=== PATIENT | female | born 1935 | race Caucasian/White ===

== ENCOUNTER 2016-08-13 08:11 | Inpatient (IN) | payer MEDICARE, OTHER ==
[~2016-08-13] VITALS: Ht 154.9 cm; Wt 74.6 kg
[2016-08-13] MEDS ORDERED: CO Q100C9 PO (08:41)
[2016-08-13] MEDS ORDERED: VITA2000 PO (08:41)
[2016-08-13] MEDS ORDERED: ASTA1CAP2 PO (08:41)
[2016-08-13] MEDS ORDERED: MULT1TAB84 PO (08:41)
[2016-08-13] MEDS ORDERED: LUTE20TA PO (08:41)
[2016-08-13] MEDS ORDERED: LEVO75TA3 PO (08:41)
[2016-08-13] MEDS ORDERED: LISI10TA3 PO (08:41)
[2016-08-13] MEDS ORDERED: VITATAB11 PO (08:41)
[2016-08-13] MEDS ORDERED: ASPI1TAB69 PO (08:42)
--- NOTE | 2016-08-23 19:29 | MH ---
cc: CARLOS DEVLIN DATE OF ADMISSION 08/29/2016 ADMISSION DIAGNOSIS Osteoarthritis of the right hip, pain right hip. HISTORY OF PRESENT ILLNESS The patient is a 81-year-old white female who presented to the office in July of this year complaining of right hip pain of at least three years duration. She had noted the gradual onset of her symptoms unrelated to injury or unusual activity. She had conformed to conservative management while noting lingering symptoms that tended to wax and wane in nature. She had completed previous orthopedic evaluation in the [facility] with a Dr. Javier. The patient reported that she was diagnosed as having an osteoarthritic condition of her right hip for which she was encouraged to consider operative intervention. She did complete a course of physical therapy that she found to be of limited benefit and she later returned to the [facility] where she had resided during the spring and summer months where she continued to conform to an exercise program. During the past year, her symptoms became somewhat more pronounced for which she underwent additional evaluation and treatment including chiropractic intervention. She was again encouraged to consider operative intervention, but was unable to plan accordingly being a caregiver for her ailing . She was taking Advil and aspirin on an occasional basis for pain management and tried to exercise while riding a three-wheeled bicycle as well as exercising at the gym. She presented to the undersigned in July describing ongoing pain involving both her lower back and her right hip with limited radiation into the anterior aspect of her right thigh. There was no associated numbness or tingling. No bowel or bladder incontinence. The patient reported at that time she had undergone previous bilateral total knee arthroplasty as completed in the [facility]. She described an uneventful recovery associated with that treatment. At the time of her initial office evaluation, her x-ray studies revealed significant osteoarthritis of the hips being more pronounced on the right side with near [id number] apposition. 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 Findings and treatment options were reviewed at that time. The pros and cons of continuing with conservative management versus operative intervention involving total hip arthroplasty were outlined in detail. Emphasis was made regarding the fact that the decision to proceed with surgery would be left entirely to the patient's discretion. At that time, the patient felt that her symptoms had progressed to a point where she was ready to proceed with operative intervention as discussed. Upon completion of medical clearance of her primary care physician, she contacted the office for scheduling purposes and is currently being admitted in order that total hip replacement be accomplished. PAST MEDICAL HISTORY, HOSPITALIZATIONS AND SURGERIES 1. Bilateral total knee arthroplasty as described 2. Left mastectomy for history of cancer followed by both chemo and radiation therapy 3. Partial thyroidectomy, 4. Bilateral cataract excision with intraocular lens implants, 5. Tonsillectomy, 6. D&C 7. Colonoscopy 8. Medical management for a TIA with no residual being noted. The patient's medical illnesses include 1. Hypertension 2. Hypothyroidism. MEDICATIONS Current include 1. Lisinopril 10 mg daily. 2. Levofloxacin 0.75 mg daily. 3. Aspirin 81 mg daily 4. Multivitamin tablet daily. 5. Vitamin D. 6. Vitamin B complex 7. Lutein 8. 9. ALLERGIES AMOXICILLIN - CAUSED HIVES TYPE REACTION. PERCOCET - CAUSED ITCHING SHRIMP - ALSO CAUSES HIVES TYPE REACTION. REVIEW OF SYSTEMS She does wear glasses. Denies headache, seizure or syncope. No sinus congestion or epistaxis. Diminished auditory acuity. No tinnitus. No bleeding gums or dysphagia. Denies cough, shortness of breath, upper respiratory infection, pneumonia or tuberculosis. No angina or heart disease. She is medically managed for hypertension. Her appetite is good. She does have intermittent constipation treated with MiraLax, no hepatitis, gallbladder disease or ulcers. There is a positive history of hemorrhoids. No urinary tract infection. No kidney stones. Fracture of the right foot treated by cast immobilization. No psychiatric illness. Her remaining review of systems is unremarkable and noncontributory. FAMILY HISTORY The patient has been a for less than one year, this having been a second marriage. Her more recent at 88 years of age with a history of COPD and pneumonia. She has three sons and three daughters, one son and one daughter being adopted. one of her daughters has had a history of a stroke but otherwise all children are in good health. Her family history is otherwise positive for diabetes, Alzheimer's disease and breast cancer with metastases. SOCIAL HISTORY The patient completed a postgraduate education. 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 Denies active use of tobacco and ethanol. PHYSICAL EXAMINATION GENERAL: Height 5 feet 4 inches, weight 159 pounds. An alert, oriented and responsive 81-year-old white female who sits quietly upon examination table with no obvious distress. EYES, NOSE AND THROAT: Pupils are equally round and reactive to light. Extraocular movements full. Sclerae clear. External nares clear. External auditory canals clear. Dental intact. Mucous membranes pink and moist. Pharynx clear. NECK: Supple. Active range of motion without significant pain. Carotid pulse palpable bilaterally. Trachea midline. Thyroid without enlargement. LUNGS: Clear to auscultation and percussion. No CVA tenderness. No discomfort throughout the dorsal lumbar spine. HEART: Regular rhythm. No murmur or gallop. ABDOMEN: Soft, nontender. Bowel sounds present. PELVIC: Per primary care physician. EXTREMITIES: Right hip - There is no localizing tenderness to palpation. There is restricted mobility of the hip joint, especially involving internal rotation and abduction maneuvering with pain at the extremes of motion. No associated sensation of crepitation or instability. Straight-leg raising is unremarkable at 80 degrees. Mason sign is positive. Motor and sensory function grossly intact. Mild antalgic gait. NEUROLOGIC: Cranial nerves II-XII grossly intact. IMPRESSION Osteoarthritis right hip, pain right hip. PLAN Right total hip arthroplasty. The nature of the planned surgical procedure, the potential complications and risks associated, the expectations of surgery and the consent form were thoroughly reviewed with the patient prior to her admission to the hospital. Mrs. Perla has indicated her full understanding regarding all of the above and given consent to proceed with treatment as outlined. Medical evaluation and clearance for surgery will be completed by her primary care physician, Dr. Antonella Shukla. DATA Dictation as 23 August 2016. Thank you MD DEYSI Cutler/ /5:12 PM /7:04 PM
[2016-08-29] MEDS: POVIDONE IODINE 7.5% SCRUB 118 ML BOTTLE TOP SCH (06:00)
[2016-08-29] MEDS ORDERED: INSULIN HUMAN REGULAR 1,000 UNITS/10 ML VIAL SQ PRN (06:15)
[2016-08-29] MEDS ORDERED: VANCOMYCIN 1000 MG/NS 250 ML (for <70 kg) IV SCH ×2 (06:15)
[2016-08-29] MEDS ORDERED: METOPROLOL TARTRATE 25 MG TAB PO PRN (06:15)
[2016-08-29 06:36] VITALS: BP 129/55; PULSE 60; RESP 18; TEMP 97.5; O2SAT 100
[2016-08-29] MEDS ORDERED: ceFAZolin INJ 1,000 MG VIAL ONE (06:39)
[2016-08-29] MEDS ORDERED: ACETAMINOPHEN 1000 MG/100 ML VIAL IV ONE (07:01)
[2016-08-29] MEDS ORDERED: SUGAMMADEX SODIUM 200 MG/2 ML VIAL IV PUSH ONE ×2 (07:01)
[2016-08-29] MEDS ORDERED: TRANEXAMIC ACID INJ 1,000 MG/10 ML AMP IV ONE (07:21)
[2016-08-29] MEDS ORDERED: FAMOTIDINE 20 MG/2 ML VIAL ONE (07:23)
[2016-08-29] MEDS ORDERED: ceFAZolin 2 GM PREMIX 50 ML ONE (07:26)
[2016-08-29] MEDS ORDERED: TRANEXAMIC ACID 1 GM PRIOR TO PROCEDURE IV SCH ×2 (07:30)
[2016-08-29] MEDS ORDERED: LACTATED RINGER'S 1000 ML IV SCH (07:30)
[2016-08-29] MEDS ORDERED: SODIUM CHLORID 0.9% 500 ML IV SCH (07:30)
[2016-08-29] MEDS ORDERED: ceFAZolin INJ 1,000 MG VIAL TOPICAL ONE (08:12)
[2016-08-29] MEDS: DEXT 5%-NACL 0.45% 1000 ML INJ 1,000 ML IV SCH ×2 (10:02→21:02)
[2016-08-29] MEDS ORDERED: SODIUM CHLORIDE 0.9% FLUSH 5 ML FLUSH IVF PRN (10:15)
[2016-08-29] MEDS ORDERED: MISCELLANEOUS PHARMACY INFORMATION XX ONE (10:15)
[2016-08-29] MEDS ORDERED: DOCUSATE SODIUM 100 MG CAP PO PRN (10:15)
[2016-08-29] MEDS ORDERED: ACETAMINOPHEN 325 MG TAB PO PRN (10:15)
[2016-08-29] MEDS ORDERED: NALOXONE HCL 0.4 MG/ML AMP IV PRN (10:15)
[2016-08-29] MEDS ORDERED: diphenhydrAMINE HCL 25 MG CAP PO PRN (10:15)
[2016-08-29] MEDS ORDERED: Post-op Orders (for Pharmacy) MISC XX ONE (10:15)
[2016-08-29] MEDS ORDERED: BISACODYL 10 MG SUPP PR PRN (10:15)
[2016-08-29] MEDS ORDERED: TRANEXAMIC ACID INJ 1,000 MG in SODIUM CHLORIDE 0.9% INJ 100 ML IV SCH (10:15)
[2016-08-29] MEDS ORDERED: ONDANSETRON HCL 4 MG/2 ML VIAL IVP PRN (10:15)
[2016-08-29] MEDS ORDERED: PROMETHAZINE INJ 25 MG/ML VIAL IM PRN (10:15)
[2016-08-29] MEDS ORDERED: MIDAZOLAM HCL 2 MG/2 ML VIAL ONE (10:17)
[2016-08-29] MEDS ORDERED: fentaNYL CITRATE 250 MCG/5 ML AMP ONE (10:17)
[2016-08-29] MEDS ORDERED: TRANEXAMIC ACID 1 GM POST-OP IV SCH ×2 (10:30)
[2016-08-29] MEDS ORDERED: NORMOSOL R INJ 1,000 ML IV ONE (12:00)
[2016-08-29] MEDS ORDERED: PHENYLEPH/NS 1000 MCG/10 ML SYR IV ONE (12:00)
[2016-08-29] MEDS ORDERED: PROPOFOL 200 MG/20 ML AMP IV ONE (12:00)
[2016-08-29] MEDS ORDERED: ePHEDrine/NS 25 MG/5 ML SYR IV ONE (12:00)
--- NOTE | 2016-08-29 12:11 | RADRPT ---
EXAM DATE/TIME: 08/29/2016 10:43 [facility] COMPARISON: No previous studies available for comparison. INDICATIONS : Right hip replacement. MEDICAL HISTORY : None. SURGICAL HISTORY : None. ENCOUNTER: Initial ACUITY: 1 day PAIN SCORE: 0/10 LOCATION: Right hip FINDINGS: View of the right hip was obtained. Postop right total hip replacement. No dislocation. CONCLUSION: 1. Postoperative right total hip replacement. Air in soft tissues. No complications identified. Kwan Messer MD on August 29, 2016 at 12:09 Board Certified Radiologist. This report was verified electronically.
[2016-08-29 14:04] LABS: HEMATOCRIT 35.1 % (35.0-46.0); REVIEW FLAG FINAL
[2016-08-29 15:25] VITALS: BP 115/59; PULSE 77; RESP 17; TEMP 95.6; O2SAT 97
[2016-08-29] MEDS: MORPHINE SULFATE 30 MG/30 ML PCA IV SCH ×2 (15:32→22:48)
--- NOTE | 2016-08-29 16:37 | PD.CONS ---
[facility] By Dr. abarca Reason for Consult Medical management Primary Care Physician Antonella Bacon MD Diagnoses: History of Present Illness Patient is a very pleasant 81-year-old female who has been having chronic right hip pain for the past 3 years now intermittent. He had 3 episodes in the past year for her leg gave giving out and fell but no serious injuries or fractures sustained. Increasing pain prompted consult to Dr. abarca and a Mon admitted today and had a right hip surgery done. Patient currently denies any pain. Review of Systems Constitutional: DENIES: Diaphoretic episodes, Fatigue, Fever, Weight gain, Weight loss, Chills, Dizziness, Change in appetite, Night Sweats Endocrine: DENIES: Abnorml menstrual pattern, Heat/cold intolerance, Polydipsia , Polyuria, Polyphagia Eyes: COMPLAINS OF: Blurred vision Ears, nose, mouth, throat: DENIES: Tinnitus, Hearing loss, Vertigo, Nasal discharge, Oral lesions, Throat pain, Hoarseness, Ear Pain, Running Nose, Epistaxis, Sinus Pain, Toothache, Odynophagia Respiratory: DENIES: Apneas, Cough, Snoring, Wheezing, Hemoptysis, Sputum production, Shortness of breath Gastrointestinal: DENIES: Abdominal pain, Black stools, Bloody stools, Constipation, Diarrhea, Nausea, Vomiting, Difficulty Swallowing, Anorexia Genitourinary: DENIES: Abnormal vaginal bleeding, Dysmenorrhea, Dyspareunia, Sexual dysfunction, Urinary frequency, Urinary incontinence, Urgency, Hematuria , Dysuria, Nocturia, Vaginal discharge Musculoskeletal: COMPLAINS OF: Joint pain (right hip) Integumentary: DENIES: Abnormal pigmentation, Pruritus, Rash, Nail changes, Breast masses, Breast skin changes, Nipple discharge Hematologic/lymphatic: DENIES: Bruising, Lymphadenopathy Immunologic/allergic: DENIES: Eczema, Urticaria Psychiatric: DENIES: Anxiety, Confusion, Mood changes, Depression, Hallucinations, Agitation, Suicidal Ideation, Homicidal Ideation, Delusions Past Family Social History Allergies: Coded Allergies: Amoxicillin (Verified Allergy, Severe, HIVES, 08/29/16) Percocet (Verified Allergy, Severe, Itching, 08/29/16) Shrimp (Verified Allergy, Severe, Hives, LIP SWELLING, 08/29/16) Past Medical History History of hypertension History of breast cancer status post chemotherapy and radiation therapy and left mastectomy in 2004 Thyroid cancer status post partial thyroidectomy in the 70s Colonoscopy done reportedly normal in 2004 Remote history of TIA Past Surgical History Bilateral total knee arthroplasty in 2006 Left mastectomy for breast cancer followed by chemotherapy and radiation in 2004 Partial thyroidectomy Bilateral cataract surgery. Intraocular lens implantation Tonsillectomy Reported Medications At home lisinopril 10 mg daily, levothyroxine 75 g daily Aspirin 81 mg daily Multivitamins, vitamin D, vitamin B complex, [id number] medications vitamin supplements Active Ordered Medications Currently on Xarelto KAYAK MAKER pump Lortab Ambien when necessary for sleep Family History Positive family history of diabetes type 2 Positive family history of breast cancer Social History No history of smoking alcohol or substance abuse Physical Exam Vital Signs Vital Signs Date Time Temp Pulse Resp B/P Pulse Ox O2 Delivery O2 Flow Rate FiO2 08/29/16 15:32 15 08/29/16 15:25 95.6 77 17 115/59 97 08/29/16 14:00 97.2 71 17 138/65 97 Nasal Cannula 2 08/29/16 13:15 72 15 131/65 97 Nasal Cannula 2 08/29/16 12:45 75 15 124/64 98 Nasal Cannula 2 08/29/16 12:15 97.4 66 16 127/74 98 Nasal Cannula 2 08/29/16 11:45 66 15 120/62 98 Nasal Cannula 2 08/29/16 11:15 97.2 64 16 120/54 98 Nasal Cannula 2 08/29/16 11:00 96.7 64 15 113/55 98 Nasal Cannula 3 08/29/16 10:45 96.2 62 16 130/58 98 Nasal Cannula 3 08/29/16 10:30 86 14 105/53 99 Nasal Cannula 3 08/29/16 10:15 96.2 88 14 107/44 99 Nasal Cannula 3 08/29/16 09:58 95.9 71 14 114/59 99 Nasal Cannula 3 08/29/16 06:36 97.5 60 18 129/55 100 Physical Exam GENERAL: This is a well-nourished, well-developed patient, in no apparent distress., Younger than stated age SKIN: No rashes, ecchymoses or lesions. Cool and dry. HEAD: Atraumatic. Normocephalic. No temporal or scalp tenderness. EYES: Pupils equal round and reactive. Extraocular motions intact. No scleral icterus. No injection or drainage. ENT: Nose without bleeding, purulent drainage or septal hematoma. Throat without erythema, tonsillar hypertrophy or exudate. Uvula midline. Airway patent. NECK: Trachea midline. No JVD or lymphadenopathy. Supple, nontender, no meningeal signs. CARDIOVASCULAR: Regular rate and rhythm without murmurs, gallops, or rubs. RESPIRATORY: Clear to auscultation. Breath sounds equal bilaterally. No wheezes , rales, or rhonchi. GASTROINTESTINAL: Abdomen soft, non-tender, nondistended. No hepato-splenomegaly , or palpable masses. No guarding. MUSCULOSKELETAL: Right hip with post op dressing in place, no calf swelling or tenderness NEUROLOGICAL: Awake and alert. Cranial nerves II through XII intact. Motor and sensory grossly within normal limits. Five out of 5 muscle strength in all muscle groups. Normal speech. Laboratory Laboratory Tests Test 08/29/16 08/29/16 08/29/16 08/29/16 06:45 09:10 09:35 13:55 Blood Type O POSITIVE O POSITIVE O POSITIVE Antibody Screen NEGATIVE Blood Bank Comment Crossmatch Leukocyte-Reduced Red Blood Cells Hemoglobin 12.3 Hematocrit 35.1 Result Diagram: 08/29/16 1355 Imaging Last Impressions Hip X-Ray 08/29/16 1002 Signed Impressions: Service Date/Time: Monday, August 29, 2016 10:43 - CONCLUSION: 1. Postoperative right total hip replacement. Air in soft tissues. No complications identified. Kwan Messer MD Assessment and Plan Assessment and Plan 81-year-old female admitted under orthopedic services Status post right total hip arthroplasty Orthopedic service is following PT consult When necessary pain meds Hypertension Restart lisinopril in a.m. History of hypothyroidism Continue on Synthroid supplement Xarelto for DVT prophylaxis DC planning patient plans to go home with home PT Thank you for this consult we'll follow patient in-house with the Discussed Condition With Patient and sisters at bedside Yen Pierre MD Aug 29, 2016 16:37
[2016-08-29] MEDS: PCA - TOTAL MG MORPHINE DELIVERED PER SHIFT SCH ×2 (18:36→22:00)
[2016-08-29 20:05] VITALS: BP 101/52; PULSE 65; RESP 16; TEMP 95.7; O2SAT 97
[2016-08-29] MEDS ORDERED: ZOLPIDEM TARTRATE 5 MG TAB PO PRN (21:00)
[2016-08-29] MEDS ORDERED: LISINOPRIL 10 MG TAB PO SCH (21:00)
[2016-08-29] MEDS: VANCOMYCIN INJ 1,000 MG in SODIUM CHLOR 0.9% 250 ML INJ 250 ML IV SCH (21:01)
[2016-08-29] MEDS: SODIUM CHLORIDE 0.9% FLUSH 5 ML FLUSH IVF SCH (21:04)
[2016-08-30] VITALS (9 sets, daily range): BP systolic 92–136; BP diastolic 47–63; PULSE 66–78; RESP 16–20; TEMP 95.2–98.3; O2SAT 96–99
[2016-08-30] MEDS: POVIDONE IODINE 7.5% SCRUB 118 ML BOTTLE TOP SCH (00:19)
[2016-08-30] MEDS: LEVOTHYROXINE SODIUM 75 MCG TAB PO SCH (05:17)
[2016-08-30] MEDS: PCA - TOTAL MG MORPHINE DELIVERED PER SHIFT SCH ×3 (05:19→22:00)
[2016-08-30 05:57] LABS: HEMATOCRIT 33.2 % (35.0-46.0); REVIEW FLAG FINAL
[2016-08-30] MEDS ORDERED: ASPI325T PO (06:01)
[2016-08-30] MEDS ORDERED: HYDR-3516 PO (06:01)
--- NOTE | 2016-08-30 06:03 | HHI.FF ---
Face to Face Verification Diagnosis: (1) Degenerative joint disease of right hip Physical Therapy Gait training Hip: Total hip, Protocol: Right, Abduction pillow while in bed Right LE Weight Bearing: WB as tolerated Right LE Range of Motion: Active ROM Nursing Dressing Changes: Daily dressing change I have seen patient Christelle Perla on 08/30/16. My clinical findings support the need for the requested home health care services because: Limited ability to care for self High risk of falls I certify that my clinical findings support that this patient is homebound because: Post-op weakness Unsteady gait/balance Unsafe to leave home unassisted Michael Abreu MD Aug 30, 2016 06:03
[2016-08-30] MEDS ORDERED: BEDSIDE COMMODE1 MI1 (06:05)
[2016-08-30] MEDS ORDERED: WALKER WHEELS/F1 MIS (06:05)
[2016-08-30] MEDS: VANCOMYCIN INJ 1,000 MG in SODIUM CHLOR 0.9% 250 ML INJ 250 ML IV SCH (08:44)
[2016-08-30] MEDS: SODIUM CHLORIDE 0.9% FLUSH 5 ML FLUSH IVF SCH ×2 (08:44→21:00)
[2016-08-30] MEDS: LISINOPRIL 10 MG TAB PO SCH ×2 (08:45→08:52)
[2016-08-30] MEDS: ACETAMINOPHEN/HYDROcodone 325 MG/5 MG TAB PO PRN ×4 (09:00→22:47)
[2016-08-30] MEDS: RIVAROXABAN 10 MG TAB PO SCH (09:05)
[2016-08-30] MEDS: DEXT 5%-NACL 0.45% 1000 ML INJ 1,000 ML IV SCH ×2 (10:02→18:02)
--- NOTE | 2016-08-30 10:58 | HHI.PR ---
Subjective Remarks pain controlled voiding well very motivated with therapy good IS efforts Objective Vitals Vital Signs Date Time Temp Pulse Resp B/P Pulse Ox O2 Delivery O2 Flow Rate FiO2 08/30/16 08:50 99 21 08/30/16 08:08 95.2 66 16 114/55 96 08/30/16 05:19 16 08/30/16 04:05 96.0 74 17 92/47 97 08/30/16 00:52 97 Nasal Cannula 08/30/16 00:04 96.5 78 18 112/53 97 08/29/16 22:54 18 08/29/16 22:48 18 08/29/16 22:00 18 08/29/16 20:05 95.7 65 16 101/52 97 08/29/16 18:36 16 08/29/16 17:57 21 08/29/16 15:32 15 08/29/16 15:25 95.6 77 17 115/59 97 08/29/16 14:00 97.2 71 17 138/65 97 Nasal Cannula 2 08/29/16 13:15 72 15 131/65 97 Nasal Cannula 2 08/29/16 12:45 75 15 124/64 98 Nasal Cannula 2 08/29/16 12:15 97.4 66 16 127/74 98 Nasal Cannula 2 08/29/16 11:45 66 15 120/62 98 Nasal Cannula 2 08/29/16 11:15 97.2 64 16 120/54 98 Nasal Cannula 2 08/29/16 11:00 96.7 64 15 113/55 98 Nasal Cannula 3 I/O 08/29/16 08/29/16 08/29/16 08/30/16 08/30/16 08/30/16 07:00 15:00 23:00 07:00 15:00 23:00 Intake Total 1800 ml 360 ml 240 ml Output Total 1000 ml Balance 800 ml 360 ml 240 ml Intake Oral 360 ml 240 ml IV Total 600 ml Packed Cells 500 ml Other 700 ml Output Urine Total 0 ml Estimated Blood Loss 1000 ml # Voids 2 2 # Bowel Movements 0 0 Result Diagram: 08/30/16 0454 Imaging Last Impressions Hip X-Ray 08/29/16 1002 Signed Impressions: Service Date/Time: Monday, August 29, 2016 10:43 - CONCLUSION: 1. Postoperative right total hip replacement. Air in soft tissues. No complications identified. Kwan Messer MD Objective Remarks awake and alert, oriented x 3 anicteric lungs clear regular rhythm abdomen soft extremities no edema, no calf swelling or tenderness Procedures 2- right total hip replacement A/P Assessment and Plan 81-year-old female admitted under orthopedic services Status post right total hip arthroplasty 08/29 Orthopedic service is following PT ff Hypertension Restart lisinopril in a.m. History of hypothyroidism Continue on Synthroid supplement Xarelto for DVT prophylaxis DC planning patient plans to go home with home PT Yen Pierre MD Aug 30, 2016 10:57
[2016-08-31] VITALS: BP 118/54; PULSE 71; RESP 18; TEMP 96.6; O2SAT 97
[2016-08-31] MEDS: DEXT 5%-NACL 0.45% 1000 ML INJ 1,000 ML IV SCH ×4 (02:02→22:26)
[2016-08-31] MEDS: PCA - TOTAL MG MORPHINE DELIVERED PER SHIFT SCH (06:00)
[2016-08-31] MEDS: POVIDONE IODINE 7.5% SCRUB 118 ML BOTTLE TOP SCH (06:00)
[2016-08-31] MEDS: MAGNESIUM HYDROXIDE SUSP 30 ML CUP PO PRN (06:14)
[2016-08-31] MEDS: LEVOTHYROXINE SODIUM 75 MCG TAB PO SCH (06:15)
[2016-08-31] MEDS: ACETAMINOPHEN/HYDROcodone 325 MG/5 MG TAB PO PRN ×4 (06:15→20:46)
[2016-08-31 08:00] VITALS: BP 134/60; PULSE 75; RESP 18; TEMP 97.8; O2SAT 95
[2016-08-31] MEDS: RIVAROXABAN 10 MG TAB PO SCH (08:03)
[2016-08-31] MEDS: LISINOPRIL 10 MG TAB PO SCH (08:04)
[2016-08-31] MEDS: SODIUM CHLORIDE 0.9% FLUSH 5 ML FLUSH IVF SCH ×2 (08:05→20:47)
[2016-08-31 08:40] VITALS: O2SAT 99
--- NOTE | 2016-08-31 11:20 | HHI.PR ---
Subjective Remarks pain well controlled good IS efforts motivated with PT looking forward to SNF- [facility] Objective Vitals Vital Signs Date Time Temp Pulse Resp B/P Pulse Ox O2 Delivery O2 Flow Rate FiO2 08/31/16 08:40 99 08/31/16 08:00 97.8 75 18 134/60 95 08/31/16 06:00 18 08/31/16 00:00 96.6 71 18 118/54 97 08/30/16 22:00 18 08/30/16 21:49 97 08/30/16 20:00 98.3 72 20 136/63 97 08/30/16 16:20 97.9 71 16 134/58 96 08/30/16 14:00 16 08/30/16 12:04 96.1 68 16 126/59 97 I/O 08/30/16 08/30/16 08/30/16 08/31/16 08/31/16 08/31/16 07:00 15:00 23:00 07:00 15:00 23:00 Intake Total 240 ml 508 ml 710 ml 240 ml Output Total 70 ml Balance 240 ml 508 ml 640 ml 240 ml Intake Oral 240 ml 480 ml 240 ml IV Total 508 ml 230 ml Drainage Total 70 ml # Voids 2 2 2 # Bowel Movements 0 0 Result Diagram: 08/30/16 0454 Imaging Last Impressions Hip X-Ray 08/29/16 1002 Signed Impressions: Service Date/Time: Monday, August 29, 2016 10:43 - CONCLUSION: 1. Postoperative right total hip replacement. Air in soft tissues. No complications identified. Kwan Messer MD Objective Remarks awake and alert, oriented x 3 anicteric lungs clear regular rhythm extremities no edema, no calf swelling or tenderness Procedures 08/29- right total hip replacement A/P Assessment and Plan 81-year-old female admitted under orthopedic services Status post right total hip arthroplasty 08/29 Orthopedic service is following PT ff Hypertension Restart lisinopril History of hypothyroidism Continue on Synthroid supplement Xarelto for DVT prophylaxis DC planning patient plans - [facility] Yen Pierre MD Aug 31, 2016 11:20
[2016-08-31 12:00] VITALS: BP 132/61; PULSE 84; RESP 18; TEMP 99.8; O2SAT 90
[2016-08-31 16:00] VITALS: BP 114/56; PULSE 79; RESP 18; TEMP 97; O2SAT 97
[2016-08-31 20:00] VITALS: BP 125/56; PULSE 94; RESP 20; TEMP 98.7; O2SAT 98
--- NOTE | 2016-08-31 22:53 | MP ---
cc: CARLOS ABREU DATE OF SURGERY 08/29/16 PREOPERATIVE DIAGNOSIS Osteoarthritis of the right hip and pain of the right hip. POSTOPERATIVE DIAGNOSIS Osteoarthritis of the right hip and pain of the right hip. PROCEDURE Right total hip arthroplasty. SURGEON Yaquelin Abreu MD ANESTHESIA Spinal INDICATIONS A 81-year-old white female who had experienced pain of her right hip of at least 3 years duration. She had noted the gradual onset of her symptoms unrelated to injury or unusual activity. She had conformed to conservative management in the past while noting lingering symptoms that tended to wax and wane in nature. She had completed previous orthopedic evaluation in the [facility] at which time she was diagnosed as having an osteoarthritic condition of her right hip for which she was encouraged to consider operative intervention. She did complete a course of physical therapy that she found to be of limited benefit and she later returned to the [facility] where she had been residing in the spring and summer months where she continued to conform to an exercise program. During the past year, her symptoms became more pronounced for which she underwent additional evaluation and treatment including chiropractic intervention. 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 She was taking Advil and aspirin on an occasional basis for pain management and tried to exercise while riding a 3 wheel bicycle as well as exercising at a gym. She presented to the undersigned physician in July of this year describing ongoing pain involving both her lower back and her right hip area. There was no associated numbness or tingling. No bowel or bladder incontinence. She had reported that she had undergone previous bilateral total knee arthroplasty as completed in the [facility]. She describes an uneventful recovery associated with that treatment and, at the time of her initial office evaluation, her x-ray studies revealed significant osteoarthritis of the hips being more pronounced on the right side with near [id number] apposition. 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 Findings and treatment options were reviewed with the patient at that time. The pros and cons of continuing with conservative management versus operative intervention involving total hip arthroplasty were outlined in detail. Emphasis was made regarding the fact that the decision to proceed with surgery would be left entirely to the patient's discretion. At that time, the patient felt that her symptoms had progressed to a point in time where she was ready to proceed with operative intervention as discussed. In compliance with her wishes, she has currently been scheduled for admission in order that the above be accomplished. FORMAT Following induction of satisfactory spinal anesthesia as completed per the Department of Anesthesia, the patient was positioned upon the operating table in a left lateral decubitus fashion. The right hip and lower extremity proper were isolated with a U drape, thereafter, being prepped with Betadine solution and draped into a sterile field in the routine manner. Prior to initiation of the actual procedure, the standard time-out protocol was completed. All parameters were appropriately addressed and confirmed by operating room personnel. A standard posterolateral approach was initiated through a sharp skin incision developed through underlying subcutaneous tissue with hemostasis maintained by electrocautery. By deepening dissection, the fascia overlying the gluteus musculature was exposed and thereafter sharply incised to the limits of the incision. The underlying gluteus fibers were divided with the Bovie on cutting current. Progressive dissection facilitated exposure of the short external rotators structures. The piriformis tendon was utilized in anatomical landmark and division of these structures completed in a superior to inferior orientation and reflected medially exposing the posterior capsule. The sciatic nerve was protected. An L-shaped capsulotomy was accomplished in which a posterior dislocation of the femoral head was completed. Examination revealed severe degenerative changes with complete erosion of articular cartilage, underlying subchondral bone exposed and hypertrophic bony reactions along the margin of the femoral head. The femoral template was positioned for alignment orientation. The neck was scored and thereafter divided with power saw, the amputated segment being passed to the back table as surgical specimen. Attention was initially directed to the proximal femur. Cancellus bone was harvested. The tapered reamer was inserted for alignment orientation. Sequential rasping and broaching was completed thereafter from 7-10 mm with the calcar shahriar being utilized at the 10 mm stage. The 10 mm stem was determined to be a satisfactory fit. The trial component being removed, attention was directed to the acetabulum. The labrum and reactive soft tissue were sharply excised. Progressive reaming was accomplished from 48-52 mm. The 52 trial shell was positioned and determined to be satisfactory. The trial component being removed, the wound was copiously irrigated with pulsating antibiotic solution. Hemostasis maintained by electrocautery. Harvested cancellous bone was digitally impacted into the depths of the acetabulum and, thereafter, a 52 mm ring lock acetabular shell was firmly seated in approximately 45 degrees inclination to the horizontal and slight anteversion. A single 25 mm 6.5 cancellous screw was inserted superiorly to augment fixation. The permanent high wall acetabular liner was affixed to the acetabular shell. Attention was redirected to the proximal femur. The 10 mm femoral broach was repositioned and a trial reduction followed utilizing a 36 mm modular head with -6 mm neck length adapter. The hip readily reduced and was carried through a passive range of motion, stability being demonstrated at 90 degrees flexion at 45 degrees internal rotation. An open dislocation completed, the trial femoral components being removed the canal was thoroughly irrigated and dried and, thereafter, the 10 mm echo biometric collarless porous stem was firmly seated into the canal to which a 36 mm ceramic head with -6 mm neck length adapter was attached. An open reduction completed, repeat range of motion again noted stability as previously described. Final irrigation was accomplished with hemostasis maintained. Posterior capsule was repaired with 0 Vicryl suture. Piriformis tendon and short external rotator structures were reapproximated in a similar manner. Hemovac drain tubes were inserted through superior stab wounds. The fascia of the gluteus musculature was reapproximated with running 0 Vicryl suture. Remaining portion of the wound was closed in layers in the routine manner. Skin margins being reapproximated with a running subcuticular 3-0 Vicryl suture over which Steri-Strips were applied. Xeroform gauze and a bulky dry sterile dressing placed. The patient was repositioned into a supine orientation where an abduction splint was attached. Anesthesia was discontinued. She was thereafter transferred to a hospital bed and returned to the recovery room in satisfactory condition having tolerated her operative procedure well. Estimated blood loss approximately 1000 mL as determined per anesthesia. All implants were of the [employer] undergraduate intern. MD DEYSI Cutler/ /9:55 AM /10:21 PM
[2016-09-01] VITALS: BP 116/56; PULSE 77; RESP 18; TEMP 97.5; O2SAT 95
[2016-09-01] MEDS: ACETAMINOPHEN/HYDROcodone 325 MG/5 MG TAB PO PRN ×3 (00:45→13:05)
[2016-09-01] MEDS: LEVOTHYROXINE SODIUM 75 MCG TAB PO SCH (05:49)
[2016-09-01] MEDS: DEXT 5%-NACL 0.45% 1000 ML INJ 1,000 ML IV SCH ×2 (07:08→07:30)
[2016-09-01] MEDS: MAGNESIUM HYDROXIDE SUSP 30 ML CUP PO PRN (07:33)
[2016-09-01] MEDS: LISINOPRIL 10 MG TAB PO SCH (07:33)
[2016-09-01] MEDS: RIVAROXABAN 10 MG TAB PO SCH (07:33)
[2016-09-01] MEDS: SODIUM CHLORIDE 0.9% FLUSH 5 ML FLUSH IVF SCH (07:33)
[2016-09-01 07:35] VITALS: BP 149/68; PULSE 77; RESP 16; TEMP 98; O2SAT 100
--- NOTE | 2016-09-01 09:35 | HHI.PR ---
Subjective Remarks patient doing very well very motivated great incentive spirometry efforts voiding spontaneously had a good BM Objective Vitals Vital Signs Date Time Temp Pulse Resp B/P Pulse Ox O2 Delivery O2 Flow Rate FiO2 09/01/16 00:00 97.5 77 18 116/56 95 08/31/16 20:00 98.7 94 20 125/56 98 08/31/16 16:00 97.0 79 18 114/56 97 08/31/16 12:00 99.8 84 18 132/61 90 I/O 08/31/16 08/31/16 08/31/16 09/01/16 09/01/16 09/01/16 07:00 15:00 23:00 07:00 15:00 23:00 Intake Total 240 ml 600 ml 480 ml 240 ml Balance 240 ml 600 ml 480 ml 240 ml Intake Oral 240 ml 600 ml 480 ml 240 ml # Voids 2 3 2 2 # Bowel Movements 0 0 1 Result Diagram: 08/30/16 0454 Imaging Last Impressions Hip X-Ray 08/29/16 1002 Signed Impressions: Service Date/Time: Monday, August 29, 2016 10:43 - CONCLUSION: 1. Postoperative right total hip replacement. Air in soft tissues. No complications identified. Kwan Messer MD Objective Remarks awake and alert, oriented x 3 anicteric lungs clear regular rhythm extremities no edema, no calf swelling or tenderness Procedures 08/29- right total hip replacement A/P Assessment and Plan 81-year-old female admitted under orthopedic services Status post right total hip arthroplasty 08/29 Orthopedic service is following PT ff Hypertension lisinopril History of hypothyroidism Continue on Synthroid supplement on Xarelto here for DVT prophylaxis DC planning patient plans - SNF per primary service Yen Pierre MD Sep 01, 2016 09:35
--- NOTE | 2016-09-04 21:34 | MD ---
cc: ANTONELLA BECERRA MD, NORMAN ADMISSION DATE: 08/29/2016 DISCHARGE DATE: 09/01/2016 ADMISSION DIAGNOSIS Osteoarthritis of the right hip. Pain of the right hip. DISCHARGE DIAGNOSIS: Osteoarthritis of the right hip. Pain of the right hip. HISTORY The patient is a 81-year-old white female who presented to the office in July of this year complaining of right hip pain of at least 3 years duration. She had noted the gradual onset of her symptoms unrelated to injury or unusual activity. She had conformed to conservative management while noting lingering symptoms that tended to wax and wane in nature. She had undergone previous orthopedic evaluation in the [facility] with Dr. Javier. She was diagnosed as having an osteoarthritic condition for which she was encouraged to consider operative intervention. She did complete a course of physical therapy that she found to be of limited benefit and later returned to [place] where she resides during the spring and summer months where she continued to conform to an exercise program. During the past year her symptoms became more pronounced for which she underwent additional evaluation and treatment including chiropractic intervention. 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 She was taking Advil and aspirin on an occasional basis for pain management and tried to exercise while riding a three-wheeled bicycle and exercising at the gym. She presented to the undersigned physician in July of this year describing ongoing pain involving both her lower back and her right hip with radiation into the anterior aspect of her right thigh. There was no associated numbness or tingling. No bowel or bladder incontinence. She had undergone previous bilateral total knee arthroplasties as completed in the [place], [place] area and described an uneventful recovery at that time. Her current x-ray studies revealed significant osteoarthritis of the hips, being more pronounced on the right side with near [id number] apposition. 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 Findings and treatment options were reviewed. The pros and cons of continuing with conservative management versus operative intervention involving total hip arthroplasty were outlined in detail. Emphasis was made regarding the fact that the decision to proceed with surgery would be left entirely to the patient's discretion. She readily admitted that her symptoms had progressed to a point and time where she was ready to proceed in this direction and in compliance with her wishes, she was scheduled for admission in order that total hip replacement be completed. Physical examination at the time of admission revealed no localizing tenderness about the right hip. There was restricted mobility about the hip joint especially involving internal rotation and abduction maneuvering with pain at the extremes of motion. No associated sensation of crepitation or instability. Straight-leg raising unremarkable at 80 degrees. Mason sign positive. Motor and sensory function grossly intact. Mild antalgic gait. HOSPITAL COURSE Prior to admission to the hospital the patient had undergone medical evaluation and clearance for surgery as completed by her primary care physician, Dr. Antonella Becerra. She was taken to the operating room on 29 August 2016 and on that date underwent a right total hip arthroplasty completed in an uncomplicated manner. The patient was noted to have tolerated her operative procedure well and her postoperative course stable thereafter. Hemoglobin/hematocrit assessment postoperatively was 11.3 and 33.2 respectively. The patient was progressively mobilized under the guidance of physical therapy being permitted weightbearing to tolerance about her right lower extremity. Follow up examination of her surgical wound noted to be intact healing favorably, no evidence of infection. Medical followup per the hospitalist service. DVT prophylaxis initiated. Senior Cytotechnologist consulted for discharge planning. The patient had initially considered being transferred home and continue her rehabilitation on an outpatient basis but based upon her experience in the early postoperative period, she elected to be transferred to a rehab facility for continued mobilization. Plans were to be finalized through the assistance of the Social Service Department and pending medical clearance she was scheduled to be transferred on the third postoperative day at which time she was noted making slow but steady progress with regards to her rehab program. She was scheduled to be seen in office followup in approximately 4 weeks. Her condition at the time of transfer was improved. Prognosis favorable. DISCHARGE MEDICATIONS: 1. Hydrocodone 5/325 #60. 2. Aspirin 325 milligrams one tab twice daily for 4 weeks, #60. MD DEYSI Cutler/MARTHA /6:29 AM /9:20 PM
== END 2016-09-01 13:37 | DRG 470 ==
LOC: HSDI 08-29 05:33 → EDUNIT# 08-29 07:30 → N06B 08-29 14:19
PROVIDERS: ADMIT Orthopaedic Surgery; ATTEND Orthopaedic Surgery
PROC: 0SR90JZ Replacement of Right Hip Joint with Synthetic Substitute, Open Approach (ICD-10-PCS; principal; 2016-08-29 07:29)
DX: M16.0 Bilateral primary osteoarthritis of hip (principal); I10 Essential (primary) hypertension; E03.9 Hypothyroidism, unspecified; Z85.3 Personal history of malignant neoplasm of breast; Z86.73 Personal history of transient ischemic attack (TIA), and cerebral infarction without residual deficits; Z88.1 Allergy status to other antibiotic agents; Z88.5 Allergy status to narcotic agent; Z90.12 Acquired absence of left breast and nipple; Z91.013 Allergy to seafood; Z92.21 Personal history of antineoplastic chemotherapy; Z92.3 Personal history of irradiation; Z96.653 Presence of artificial knee joint, bilateral
CPT/HCPCS: 36430; 73501; 85014; 85018; 86850; 86900; 86901; 86920; 88304; 88311; 94150; C1776; J0131; J0690; J2250; J2270; J2370; J3010; J3370; J7050; P9016

== ENCOUNTER → 2016-08-13 | Outpatient (CLI) | payer MEDICARE, OTHER ==
[~2016-08-13] MED LIST: ASPI1TAB69 PO; ASPI325T PO; ASTA1CAP2 PO; BEDSIDE COMMODE1 MI1; CO Q100C9 PO; HYDR-3516 PO; LEVO75TA3 PO; LISI10TA3 PO; LUTE20TA PO; MULT1TAB84 PO; VITA2000 PO; VITATAB11 PO; WALKER WHEELS/F1 MIS
[2016-08-13 10:04] LABS: HEMATOCRIT 38.3 % (35.0-46.0); MEAN CORPUSCULAR HEMOGLOBIN 30.8 PG (27.0-34.0); MEAN CORPUSCULAR HGB CONC 33.4 % (32.0-36.0); PLATELET COUNT 204 TH/MM3 (150-450); RED BLOOD COUNT 4.17 MIL/MM3 (4.00-5.30); RED CELL DISTRIBUTION WIDTH 13.5 % (11.6-17.2); REVIEW FLAG FINAL; WHITE BLOOD COUNT 5.3 TH/MM3 (4.0-11.0)
[2016-08-13 10:05] LABS: INTERNATIONAL NORMALIZED RATIO 0.9 RATIO
[2016-08-13 10:19] LABS: BICARBONATE 29.5 MEQ/L (21.0-32.0)
[2016-08-13 10:22] LABS: POTASSIUM 4.2 MEQ/L (3.5-5.1)
--- NOTE | 2016-08-13 10:30 | RADRPT ---
EXAM DATE/TIME: 08/13/2016 09:57 [facility] COMPARISON: No previous studies available for comparison. INDICATIONS: Evaluate for pneumonia, pneumothorax, or other communicable disease, Pre op for hip surgery MEDICAL HISTORY: None. SURGICAL HISTORY: None. ENCOUNTER: Initial ACUITY: 1 day PAIN SCORE: 0/10 LOCATION: Bilateral chest FINDINGS: There are surgical clips in the left axilla. Lungs are clear. Heart and pulmonary vascularity lexy l. Portion of bony skeleton visualized unremarkable. CONCLUSION: Negative chest for acute disease. Jeison Stock MD FACR on August 13, 2016 at 10:09 Board Certified Radiologist. This report was verified electronically.
[2016-08-13 10:49] LABS: BLOOD, URINE NEG (NEG); GLUCOSE,URINE NEG (NEG); KETONE, URINE NEG (NEG); MUCUS URINE FEW /lpf (OCC); NITRITE,URINE NEG (NEG); PH, URINE 5.5 (5.0-8.5); SQUAMOUS EPITHELIAL CELL URINE <1 /hpf (0-5); URINE COLOR YELLOW (YELLW/STRAW)
[2016-08-13 10:50] LABS: COMMENT (UR) CATH-CULT NOT IND; CULTURE IF INDICATED CATH CULTURE NOT IND
--- NOTE | 2016-08-13 19:19 | EKG ---
Date Performed: 08/13/2016 Time Performed: 09:14:33 PTAGE: 81 years EKG: SINUS BRADYCARDIA LOW QRS VOLTAGE IN PRECORDIAL LEADS BORDERLINE ECG NO PREVIOUS TRACING DOCTOR: Azar Cotter Interpretating Date/Time 08/13/2016 19:17:42
== END ==
LOC: CPRE 08:02
PROVIDERS: ATTEND Orthopaedic Surgery
DX: Z01.810 Encounter for preprocedural cardiovascular examination (principal); Z01.812 Encounter for preprocedural laboratory examination; M16.0 Bilateral primary osteoarthritis of hip; R00.1 Bradycardia, unspecified
CPT/HCPCS: 36415; 71020; 80048; 81001; 85027; 85610; 93005